=== PATIENT | female | born 1950 | race Caucasian/White ===

== ENCOUNTER 2018-05-22 10:57 | Inpatient (IN) | payer MEDICARE, OTHER ==
[2018-05-22] MEDS ORDERED: Albuterol Sulfate 2.5 mg/3 ml Neb ONE (11:19)
[2018-05-22 11:54] LABS: Troponin I 0.397 ng/mL (< 0.028)
[2018-05-22] MEDS ORDERED: Nitroglycerin 2% Ointment 1 INCH/1 GM Packet ONE (13:40)
[2018-05-22] MEDS ORDERED: Acetaminophen 325 MG TAB PO PRN (14:17)
[2018-05-22] MEDS ORDERED: Ondansetron ODT 4 MG TAB PO PRN (14:17)
--- NOTE | 2018-05-22 15:06 | HP ---
PRIMARY CARE PROVIDER: Chris Gilbert MD The patient has a history of asthma, worse over the last 10 years, poorly controlled. She had a two week upper respiratory infection and started coughing. She developed respiratory distress at 3 a.m. Her Combivent inhaler was of no relief. She progressively became worse. Her called 911. She went to [place]. She was treated aggressively and subsequently transferred to [place] where she was referred to the [facility]. She has had no fever, chills, or chest pain. She is in much less distress at this time. PAST MEDICAL HISTORY: Pertinent for asthma, gastroesophageal reflux disease and labile hypertension. CURRENT MEDICATIONS: Combivent, Advair as needed. ALLERGIES: NO MEDICAL ALLERGIES. PAST SURGICAL HISTORY: Right total hip replacement 5-10 years ago. FAMILY HISTORY: Negative for coronary artery disease, diabetes, hypertension, asthma. SOCIAL HISTORY: . at bedside. Full code status. He is a surrogate decision maker. No tobacco. No alcohol. No illicit drugs. REVIEW OF SYSTEMS: GENERAL: With present illness, she was lightheaded with no fainting. This is resolved. EYES: No double vision, blurred vision, flashing lights. EAR, NOSE, AND THROAT: No ear pain or drainage. No nasal bleeding. No trouble swallowing. CARDIAC: No pressure chest pain. No history of orthopnea or paroxysmal nocturnal dyspnea. RESPIRATIONS: See present illness. GASTROINTESTINAL: Slight nausea this morning. No vomiting. No abdominal pain. No diarrhea or constipation. GENITOURINARY: No hematuria or dysuria. MUSCULOSKELETAL: No pain or swelling in her legs. She did have an infiltrated IV earlier in the left antecubital fossa and she has significant subcutaneous fluid above her elbow and below her shoulder. NEUROLOGICAL: No strokes, seizures, or focal weakness. PSYCHIATRIC: No anxiety or depression. SKIN: She has a history of one skin cancer removed and multiple precancerous lesions treated by the [facility]. HEME/LYMPH: No tender or swollen lymph nodes in the axilla, inguinal, or cervical area. PHYSICAL EXAMINATION: GENERAL: She is alert, oriented, cooperative, pleasant lady. VITAL SIGNS: Currently vital signs, blood pressure 167/97, pulse 114, respirations 22, temperature 97.5, O2 saturation is 98 on 2 L of O2. HEAD, EYES, EARS, NOSE, AND THROAT: Revealed pupils are equal, round, and reactive to light. Extraocular movements are intact. Sclerae are white. Tympanic membranes clear. Nose clear. Throat is clear. NECK: Supple without jugular venous distention, adenopathy, or thyromegaly. CHEST: Clear to percussion. She does have some wheezes and some coarse breath sounds and rhonchi diffusely. After reviewing the records, they are much improved from previous. HEART: Has a hyperdynamic tachycardiac with a split S1, no murmurs noted. ABDOMEN: Soft. Bowel sounds are normal. There is no hepatosplenomegaly. No mass. No rebound. No bruits. EXTREMITIES: Reveal no cyanosis, clubbing, or edema. PULSES: Carotid, radial, femoral, and dorsalis pedis pulses intact and symmetric. SKIN: Warm and dry with some actinic changes. LYMPHATIC SURVEY: Reveals no tender or swollen lymph nodes in the axilla, inguinal, or cervical area. NEUROLOGICAL: Cranial nerves 2 through 12 intact. Deep tendon reflexes symmetric. Moves all extremities. Sensation intact. DIAGNOSTIC DATA: Chest x-ray: Some hyperinflation, vertical heart, no infiltrates, reviewed by me. EKG: Sinus tachycardia, some nonspecific ST abnormality. No acute changes Chemistries: Sodium 143, potassium 4.1, CO2 of 23, BUN 11, creatinine 0.7. Liver function tests normal. Blood sugar 114. Urinalysis is clear. BNP 151. Troponin 0.15 and 0.4. White count 7.0, hemoglobin 14.5, platelet count 252,000. ADMITTING DIAGNOSIS: Acute respiratory failure with hypoxemia, status asthmaticus, elevated troponin's. PLAN: Continue steroids. Continue DuoNeb 3 mL q.6 hours. Add Dulera two puffs b.i.d., continue O2 supplementation as needed. Because of the elevated enzymes, a nuclear medicine stress test will probably be done tomorrow. However, she will need to have clear lung aguayo and a resolved tachycardia by that time for me to do that. This has all been discussed with her and her . Job ID: [id number]
[2018-05-22 15:15] LABS: CKMB 8.8 ng/mL (0-6.6)
[2018-05-22] MEDS: Azithromycin 500 MG in Sodium Chloride 0.9% 250 ML 250 ML IVPB SCH (22:28)
[2018-05-22] MEDS: Guaifenesin DM 100-10/5 ML UDCUP PO PRN (23:13)
[2018-05-22] MEDS: Mometasone/Formoterol 120 PUFF INHALER INH SCH (23:57)
[2018-05-23 05:15] LABS: #Lymphocytes 0.7 thou/uL (1.20-3.40); #Monocytes 0.9 thou/uL (0.11-0.59); %Basophils 0.3 % (0.0-1.0); %Eosinophils 0.1 % (0.0-10.0); %Monocytes 7.9 % (0.0-10.0); %Neutrophils 85.6 % (42.0-75.0); Hemoglobin 13.8 g/dL (12.0-16.0); Mean Corpuscular Hemoglobin 32.9 pg (27.0-31.0); Mean Corpuscular Volume 99.6 fL (78.0-98.0); Mean Platelet Volume 7.1 fL (7.4-10.4); Platelet Count 264 thou/uL (130-400); RBC Distribution Width 12.1 % (11.5-14.5); Red Blood Cell (RBC) Count 4.21 mill/uL (4.20-5.40); White Blood Cell (WBC) Count 11.7 thou/uL (4.8-10.8)
[2018-05-23 05:33] LABS: Anion Gap 12 mmol/L (10-20); BUN (Urea Nitrogen) 10 mg/dL (9.8-20.1); Calc. Creatinine Clearance 74 mL/min (70-130); Calcium 10.1 mg/dL (7.8-10.44); Carbon Dioxide 25 mmol/L (23-31); Chloride 108 mmol/L (98-107); Estimated GFR-MDRD 82; Glucose 114 mg/dL (80-115); Potassium 4.5 mmol/L (3.5-5.1); Sodium 140 mmol/L (136-145)
[2018-05-23] MEDS: Mometasone/Formoterol 120 PUFF INHALER INH SCH ×2 (06:35→18:33)
[2018-05-23] MEDS: Enoxaparin Sodium 40 MG/0.4 ML SYRINGE SC SCH (09:25)
[2018-05-23] MEDS: predniSONE 20 MG TAB PO SCH (09:25)
--- NOTE | 2018-05-23 09:39 | PDOC.PN ---
- Subjective Encounter Start Date: 05/23/18 Encounter Start Time: 09:36 Subjective: min sob,mild wheezing - Objective Resuscitation Status - Order Detail: 05/22/18 14:14 Resuscitation Status Routine Resuscitation Status: FULL: Full Resuscitation MAR Reviewed: Yes Vital Signs & Weight: Vital Signs (12 hours) Temp Pulse Resp BP Pulse Ox 05/23/18 04:15 98.5 F 112 H 20 156/85 H 95 05/22/18 23:53 72 16 92 L 05/22/18 23:15 107 H 18 159/87 H Weight Weight 131 lb 8 oz I&O: 05/22/18 05/23/18 05/24/18 06:59 06:59 06:59 Intake Total 240 Output Total 200 Balance 40 Result Diagrams: 05/23/18 04:41 05/23/18 04:41 Phys Exam - Physical Examination Neck: no JVD scattered wheezes,OW good BS Cardiovascular: RRR, no significant murmur Gastrointestinal: soft, positive bowel sounds Musculoskeletal: no edema Dx/Plan (1) Status asthmaticus Code(s): J45.902 - UNSPECIFIED ASTHMA WITH STATUS ASTHMATICUS Status: Acute Qualifiers: Asthma severity: severe Asthma persistence: unspecified Qualified Code(s) : J45.902 - Unspecified asthma with status asthmaticus (2) Acute respiratory failure with hypoxemia Code(s): J96.01 - ACUTE RESPIRATORY FAILURE WITH HYPOXIA Status: Acute (3) Demand ischemia Code(s): I24.8 - OTHER FORMS OF ACUTE ISCHEMIC HEART DISEASE Status: Acute (4) HTN (hypertension) Code(s): I10 - ESSENTIAL (PRIMARY) HYPERTENSION Status: Acute Qualifiers: Hypertension type: essential hypertension Qualified Code(s): I10 - Essential (primary) hypertension - Plan cont nebs,steroids, dulera, O2 -: consult cardiology * .
[2018-05-23] MEDS: Guaifenesin DM 100-10/5 ML UDCUP PO PRN ×2 (10:14→20:08)
[2018-05-23] MEDS: Azithromycin 500 MG in Sodium Chloride 0.9% 250 ML 250 ML IVPB SCH (15:05)
[2018-05-23] MEDS ORDERED: Amlodipine 5 MG TAB PO SCH (17:45)
--- NOTE | 2018-05-23 18:06 | CON ---
DATE OF CONSULTATION: LOCATION: [place], [place]. CONSULTING PROVIDER: Dr. Jose. HISTORY OF PRESENT ILLNESS: The patient is a 67-year-old female with past medical history of asthma, who was previously well controlled on her current medications which include albuterol inhaler and Combivent. She presented to [facility] with increasing shortness of breath without improvement with use of both albuterol and Combivent. She was treated aggressively for severe asthma exacerbation in the [facility] and subsequently transferred to [place]. We are consulted regarding the patient's elevated cardiac enzymes, which she had the CK-MB of 3.9, which increased to 8.8 and troponins, which were elevated initially at [facility] at 0.151 and increased to 0.663. The patient denied any chest pain, pleurisy, nausea, vomiting, diaphoresis, palpitations, syncopal or presyncopal episodes. The patient does report shortness of breath and wheezing, which is similar in character to previous asthma exacerbations; however, she reports this one was much worse. REVIEW OF SYSTEMS: GENERAL: The patient denies fever or chills. CARDIOVASCULAR: Denies chest pain. Denies palpitations. Denies diaphoresis. RESPIRATORY: The patient reports shortness of breath. The patient reports wheezing. The patient reports cough. PHYSICAL EXAMINATION: GENERAL: The patient is resting comfortably in bed, in no acute distress. HEAD: Normocephalic and atraumatic. CARDIOVASCULAR: Heart is regular rate and rhythm. No murmurs, rubs, or gallops. RESPIRATORY: The patient had diffusely diminished breath sounds bilaterally with inspiratory and expiratory wheezes present. ABDOMEN: Soft, nontender, and nondistended. Normoactive bowel sounds in all 4 quadrants. EXTREMITIES: No clubbing, cyanosis, or edema. Peripheral pulses are intact 2+ throughout. PHYSICAL EXAMINATION: VITAL SIGNS: Temperature 97.6, pulse 122, respiratory rate 16, oxygen saturation 92% on room air, and blood pressure 164/99. PERTINENT LAB VALUES: The patient had a CK-MB of 8.8, troponin of 0.663. Creatinine 0.71, BUN of 10. D-dimer less than 0.27. WBC 11.7, hemoglobin 13.8, and hematocrit 41.9. ASSESSMENT AND PLAN: 1. Elevated cardiac enzymes, this is likely due to demand ischemia with concern for underlying coronary artery disease elicited by the acute asthma exacerbation. We will check a D-dimer, which was within normal limits to rule out possibility of pulmonary embolism. Ultimately, plan is for cardiac catheterization after better control of the asthma exacerbation. The patient was counseled on risks and benefits and is agreeable to proceed with cardiac catheterization. We will advance diet to heart healthy, reassessed this afternoon and plan accordingly pending the patient's clinical status. 2. Asthma exacerbation. Continue current medical management. We will plan for cardiac catheterization after resolution of symptoms. The patient seen and examined by Dr. Tobias Reid, agrees with the above assessment and plan unless otherwise indicated in his dictation. Job ID: [id number]
[2018-05-24] MEDS: Mometasone/Formoterol 120 PUFF INHALER INH SCH ×2 (06:55→18:58)
--- NOTE | 2018-05-24 07:08 | CON ---
DATE OF CONSULTATION: REASON FOR CONSULTATION: Elevated troponin. Dr. Anne-Marie Jose from [facility]. Please refer to Hernando Perez's full consultation for details. HISTORY OF PRESENT ILLNESS: Ms. Mix is a pleasant 67-year-old woman, who recently presented with status asthmaticus. She does have a previous history of asthma. She states she had a coughing spell that precipitated severe asthma. She continues to be short of breath in addition to tachycardia from underlying medications. She denied chest pain or pressure. Her recent labs did suggest troponin of 0.6 with a CK-MB of 88. She has no previous history of underlying coronary artery disease. PHYSICAL EXAMINATION: GENERAL: Patient is a pleasant 67-year-old woman, who is in no acute distress. The patient appears their stated age. VITAL SIGNS: Blood pressure 164/99, pulse 122, and temperature 97.6. NEUROLOGIC: The patient is alert and oriented x3 with no focal neurologic deficits. HEENT: Sclerae without icterus. Mouth has moist mucous membranes with normal pallor. NECK: No JVD. Carotid upstroke brisk. No bruits bilaterally. LUNGS: Wheezing noted bilaterally. BACK: No scoliosis or kyphosis. CARDIAC: Regular rate and rhythm with normal S1 and S2. No S3 or S4 noted. No significant rubs, murmurs, thrills, or gallops noted throughout the precordium. PMI is not displaced. There is no parasternal heave. ABDOMEN: Soft, nontender, nondistended. No peritoneal signs present. No hepatosplenomegaly. No abnormal striae. EXTREMITIES: 2+ femoral and 2+ dorsalis pedis pulses. No cyanosis, clubbing, or edema. SKIN: No gross abnormalities. PERTINENT LABORATORY DATA: As above. Hemoglobin 13.8. IMPRESSION: 1. Elevated troponin. 2. Status asthmaticus. RECOMMENDATIONS: Ms. Mix's troponin is elevated. She has no significant risk factors for underlying coronary artery disease, but cannot refuse the underlying troponin. I recommended proceeding with coronary angiography and possible PCI. I discussed the procedure in full detail with Ms. Mix. Risks included, not limited to the following: , stroke, [place], need for emergency surgery, loss of limb, bleeding, and infection, as well as a reaction to the dye causing kidney failure and needing long-term dialysis. I also discussed the risks of PCI to include all of the above including coronary dissection and perforation in addition to acute stent thrombosis and restenosis. All questions were answered. I also discussed drug-coated and [id number] stent placement. There were no contraindications. At this point, given her heart rate and continued wheezing and the fact that she is not able to lie flat, we will defer proceeding with angiography. We will reassess in a.m. Continue Lovenox as prescribed. Job ID: [id number]
[2018-05-24] MEDS: predniSONE 20 MG TAB PO SCH (08:40)
[2018-05-24] MEDS ORDERED: Amlodipine 5 MG TAB PO SCH (09:00)
--- NOTE | 2018-05-24 09:00 | PDOC.PN ---
- Subjective Encounter Start Date: 05/24/18 Encounter Start Time: 08:58 Subjective: sob with exertion, mild cough - Objective Resuscitation Status - Order Detail: 05/22/18 14:14 Resuscitation Status Routine Resuscitation Status: FULL: Full Resuscitation MAR Reviewed: Yes Vital Signs & Weight: Vital Signs (12 hours) Temp Pulse Resp BP Pulse Ox 05/24/18 08:37 97.8 F 106 H 15 183/106 H 95 05/24/18 06:54 100 16 90 L 05/24/18 04:00 97.5 F L 105 H 20 161/103 H 95 05/24/18 01:31 101 H 16 92 L 05/23/18 22:16 106 H 20 91 L Weight Weight 129 lb 12.8 oz I&O: 05/23/18 05/24/18 05/25/18 06:59 06:59 06:59 Intake Total 240 680 Output Total 200 400 Balance 40 280 Result Diagrams: 05/23/18 04:41 05/23/18 04:41 Phys Exam - Physical Examination Constitutional: NAD Neck: no JVD corse BS, mild post lung wheezes Cardiovascular: RRR, no significant murmur Gastrointestinal: soft, positive bowel sounds Musculoskeletal: no edema Dx/Plan (1) Status asthmaticus Code(s): J45.902 - UNSPECIFIED ASTHMA WITH STATUS ASTHMATICUS Status: Acute Qualifiers: Asthma severity: severe Asthma persistence: unspecified Qualified Code(s) : J45.902 - Unspecified asthma with status asthmaticus (2) Acute respiratory failure with hypoxemia Code(s): J96.01 - ACUTE RESPIRATORY FAILURE WITH HYPOXIA Status: Acute (3) Demand ischemia Code(s): I24.8 - OTHER FORMS OF ACUTE ISCHEMIC HEART DISEASE Status: Acute (4) HTN (hypertension) Code(s): I10 - ESSENTIAL (PRIMARY) HYPERTENSION Status: Acute Qualifiers: Hypertension type: essential hypertension Qualified Code(s): I10 - Essential (primary) hypertension - Plan start iv enalapril 1.25 q6h for BP -: cont steroids, nebs, etc -: timing or cardiac cath depends on being able to lie flat * .
[2018-05-24] MEDS: Enoxaparin Sodium 40 MG/0.4 ML SYRINGE SC SCH (10:20)
[2018-05-24] MEDS: Enalaprilat Dihydrate 1.25 MG/ML VIAL SLOW IVP SCH ×3 (11:16→20:00)
--- NOTE | 2018-05-24 14:53 | PDOC.CTH ---
Cardiology Progress Note - Subjective Feeling better today. Feels like she can lie flat. Still with elevated BP and pulse rate 100-140bpm. SR. Feels racing heart beat, but no CP. - Objective Vital Signs Temp Pulse Resp BP Pulse Ox 05/24/18 14:11 100 16 92 L 05/24/18 11:09 97.6 F 106 H 22 H 168/97 H 96 05/24/18 11:01 102 H 16 92 L 05/24/18 08:37 97.8 F 106 H 15 183/106 H 95 05/24/18 06:54 100 16 90 L 05/24/18 04:00 97.5 F L 105 H 20 161/103 H 95 Weight 129 lb 12.8 oz 05/23/18 05/24/18 05/25/18 06:59 06:59 06:59 Intake Total 240 680 Output Total 200 400 Balance 40 280 - Physical Examination General/Neuro: alert & oriented x3 Neck: no JVD present Lungs: other: (Right exp wheeze) Heart: other: (Regular, tachy) Abdomen: NT/ND Extremities: other: (no edema) - Telemetry Telemetry Rhythm: ST - Labs Result Diagrams: 05/23/18 04:41 05/23/18 04:41 Troponin/CKMB CK-MB (CK-2) 8.8 ng/mL (0-6.6) H* 05/22/18 14:10 Troponin I 0.663 ng/mL (< 0.028) H* 05/22/18 14:10 - Assessment/Plan 1. NSTEMI 2. Asthma exacerbation 3. HTN 4. Tachycardia IV cardizem x 1. Start po cardizem to help improve tachycardia. Plan for diagnostic LHC possibly tomorrow. Continue addressing BP. Vasotec added today. Trend trop with repeat lab in AM.
[2018-05-24] MEDS: Azithromycin 500 MG in Sodium Chloride 0.9% 250 ML 250 ML IVPB SCH (15:49)
[2018-05-24] MEDS: Guaifenesin DM 100-10/5 ML UDCUP PO PRN (20:00)
[2018-05-24] MEDS ORDERED: Lorazepam 0.5 MG TAB PO SCH (21:00)
[2018-05-25] MEDS: Zolpidem Tartrate 5 MG TAB PO PRN ×2 (01:09→20:15)
[2018-05-25] MEDS: Enalaprilat Dihydrate 1.25 MG/ML VIAL SLOW IVP SCH ×2 (02:57→09:57)
[2018-05-25] MEDS: Guaifenesin DM 100-10/5 ML UDCUP PO PRN ×3 (05:22→18:24)
[2018-05-25 05:36] LABS: Anion Gap 13 mmol/L (10-20); BUN (Urea Nitrogen) 16 mg/dL (9.8-20.1); Calc. Creatinine Clearance 68 mL/min (70-130); Calcium 10.1 mg/dL (7.8-10.44); Carbon Dioxide 22 mmol/L (23-31); Chloride 106 mmol/L (98-107); Estimated GFR-MDRD 77; Glucose 97 mg/dL (80-115); Sodium 137 mmol/L (136-145)
[2018-05-25 05:57] LABS: CKMB 3.6 ng/mL (0-6.6)
[2018-05-25] MEDS: Mometasone/Formoterol 120 PUFF INHALER INH SCH ×2 (07:10→18:59)
--- NOTE | 2018-05-25 09:29 | PDOC.PN ---
- Subjective Encounter Start Date: 05/25/18 Encounter Start Time: 09:28 Subjective: another asthma episode last nite - Objective Resuscitation Status - Order Detail: 05/22/18 14:14 Resuscitation Status Routine Resuscitation Status: FULL: Full Resuscitation MAR Reviewed: Yes Vital Signs & Weight: Vital Signs (12 hours) Temp Pulse Resp BP BP Pulse Ox 05/25/18 08:00 97.6 F 102 H 20 142/92 H 93 L 05/25/18 07:10 111 H 14 91 L 05/25/18 05:16 116 H 24 H 84 L 05/25/18 03:30 97.4 F L 105 H 20 129/75 92 L 05/25/18 02:57 102 H 16 137/81 137/81 93 L 05/25/18 02:24 101 H 20 92 L Weight Weight 125 lb 8 oz I&O: 05/24/18 05/25/18 05/26/18 06:59 06:59 06:59 Intake Total 680 1160 Output Total 400 Balance 280 1160 Result Diagrams: 05/23/18 04:41 05/25/18 04:59 Phys Exam - Physical Examination Neck: no JVD coarse BS Cardiovascular: RRR, no significant murmur Gastrointestinal: soft, positive bowel sounds Musculoskeletal: no edema Dx/Plan (1) Status asthmaticus Code(s): J45.902 - UNSPECIFIED ASTHMA WITH STATUS ASTHMATICUS Status: Acute Qualifiers: Asthma severity: severe Asthma persistence: unspecified Qualified Code(s) : J45.902 - Unspecified asthma with status asthmaticus (2) Acute respiratory failure with hypoxemia Code(s): J96.01 - ACUTE RESPIRATORY FAILURE WITH HYPOXIA Status: Acute (3) Demand ischemia Code(s): I24.8 - OTHER FORMS OF ACUTE ISCHEMIC HEART DISEASE Status: Acute (4) HTN (hypertension) Code(s): I10 - ESSENTIAL (PRIMARY) HYPERTENSION Status: Acute Qualifiers: Hypertension type: essential hypertension Qualified Code(s): I10 - Essential (primary) hypertension - Plan pulmonology consult -: echo pending * .
[2018-05-25] MEDS: Enoxaparin Sodium 40 MG/0.4 ML SYRINGE SC SCH (09:53)
[2018-05-25] MEDS: predniSONE 20 MG TAB PO SCH (09:54)
[2018-05-25] MEDS: Azithromycin 500 MG in Sodium Chloride 0.9% 250 ML 250 ML IVPB SCH (14:33)
--- NOTE | 2018-05-25 14:44 | CON ---
DATE OF CONSULTATION: SUBJECTIVE: Ms. Mix states she had a great day yesterday. This morning, she had another coughing spell. She had significant shortness of breath this morning. She had recurrent wheezing. Her states he has been able to hear her from the side of the bed. Heart rate has consistently been in the 110s to 120s. PHYSICAL EXAMINATION: GENERAL: Patient is a pleasant female who is in no acute distress. The patient appears their stated age. VITAL SIGNS: Blood pressure 145/88, pulse 112, respirations 20. NEUROLOGIC: The patient is alert and oriented x3 with no focal neurologic deficits. HEENT: Sclerae without icterus. Mouth has moist mucous membranes with normal pallor. NECK: No JVD. Carotid upstroke brisk. No bruits bilaterally. LUNGS: Wheezing and rhonchi bilaterally. BACK: No scoliosis or kyphosis. CARDIAC: Regular rate and rhythm with normal S1 and S2. No S3 or S4 noted. No significant rubs, murmurs, thrills, or gallops noted throughout the precordium. PMI is not displaced. There is no parasternal heave. ABDOMEN: Soft, nontender, nondistended. No peritoneal signs present. No hepatosplenomegaly. No abnormal striae. EXTREMITIES: 2+ femoral and 2+ dorsalis pedis pulses. No cyanosis, clubbing, or edema. SKIN: No gross abnormalities. PERTINENT LABORATORY DATA: Hemoglobin 13.8. Peak troponin 0.663 with CK-MB of 1.8. IMPRESSION: 1. Elevated troponin. 2. Status asthmaticus. 3. Recurrent wheezing. RECOMMENDATIONS: I have asked Dr. Escobar to consult on Ms Mix. She continues to have issues and symptoms despite medical therapy. At this point, I would not feel comfortable proceeding with coronary angiography given consistent tachycardia and difficulty with breathing. I will be out of the office tomorrow. I did state if needed, we could proceed with the catheterization on Tuesday. She wanted to discuss further options. I do not feel a stress test is appropriate given her current lung condition. It would be okay from my standpoint if she wanted to be treated medically with close outpatient followup if she improves over the weekend. Otherwise, I have no further recommendations. She has no current symptoms suggesting angina so would not benefit Imdur. She has been placed on low-dose Cardizem for rate control. Job ID: [id number]
[2018-05-25] MEDS ORDERED: Montelukast Sodium 10 mg Tablet PO SCH (21:00)
--- NOTE | 2018-05-26 01:45 | CON ---
DATE OF CONSULTATION: HISTORY OF PRESENT ILLNESS: Alina Mix is a 67-year-old female with asthma for many years now. It was an adult onset. She is followed by Dr. Gilbert. She presented with a progressive rapid shortness of breath after developing what she thought was a viral illness 2 weeks ago. She is improving slowly, but not as fast as she would like. Her says she could not talk when she came in. She does not have a nebulizer at home. She is not steroid dependent. She does not have peripheral eosinophilia by admitting lab. PAST MEDICAL HISTORY: Remarkable for hypertension and reflux disease. She has been on Advair and Combivent for many years. SOCIAL HISTORY: She is a nonsmoker, nondrinker, nondrug user. FAMILY HISTORY: She has no family history of asthma or lung disease in early age. PAST SURGICAL HISTORY: Remarkable for hip replacement. ALLERGIES: REPORTS NO DRUG ALLERGIES. REVIEW OF SYSTEMS: Ten-point otherwise negative. She actually wants to go home today. PHYSICAL EXAMINATION: VITAL SIGNS: She is afebrile. Heart rate is 110, respiratory rate 16, and oximetry is 92% to 93%. HEAD AND NECK: Unremarkable. She has no lymphadenopathy. LUNGS: Remarkable for distant wheezes. HEART: Regular rhythm. S1 and S2 are normal. ABDOMEN: Soft and nontender. EXTREMITIES: Without clubbing, cyanosis, or edema. IMPRESSION: Asthma exacerbation, slowly improving. This is not surprising after a viral illness. I doubt she has bacterial bronchitis, but I think it is reasonable to place her on azithromycin. This can be switched to p.o. azithromycin. She has no infiltrates on her chest radiograph. She has an elevated troponin that will be worked up by Cardiology, but I would think it could be done as an outpatient. An echocardiogram is pending. With regard to her ongoing bronchospasm, I suspect this will slowly improve. Her resting tachycardia is likely related to her bronchospasm. She wants to go home if she can today or tomorrow. I do not think that is unreasonable that she is not having a history suggestive of unstable angina and just has abnormal troponins. Her tachyarrhythmia (sinus tach) is most likely related to status asthmaticus. Actually, need to get her a peak flow meter and see what her bedside peak flows are. I suspect they are much worse than we would suspect clinically and I suspect she always has some low degree of asthma going on, just had a severe exacerbation. I have encouraged her to push fluids to hopefully facilitate mucus clearance. TIME SPENT: This was a 50-minute consult, 50% of the time spent on the unit coordinating care. Job ID: [id number]
[2018-05-26] MEDS: Mometasone/Formoterol 120 PUFF INHALER INH SCH (06:52)
[2018-05-26] MEDS ORDERED: Azithromycin 200 MG/5 ML Oral Suspension PO SCH (09:00)
[2018-05-26] MEDS: predniSONE 20 MG TAB PO SCH (09:02)
[2018-05-26] MEDS: Enoxaparin Sodium 40 MG/0.4 ML SYRINGE SC SCH (09:03)
--- NOTE | 2018-05-26 11:22 | PRG ---
DATE OF SERVICE: 05/26/2018 SUBJECTIVE: Ms. Mix did well overnight. She has no new complaints. She wants to go home. She feels like she is stable to go home. Her agrees with her. OBJECTIVE: VITAL SIGNS: She is afebrile. Heart rate is 93, respiratory rate is 18, oximetry is 96% on room air, blood pressure is 169/88. LUNGS: Clear. HEART: Regular rhythm. S1 and S2 normal. ABDOMEN: Soft and nontender. IMPRESSION: 1. Asthma exacerbation. 2. Probable coexistent bronchitis. She probably can stop her antibiotics going out the door. PLAN: We have added Singulair. I have recommended prednisone 40 mg for 5 days and 20 mg until she sees me in 2 weeks. I have written a prescription for nebulizer. I have written a prescription for ipratropium and albuterol premix to do four times a day and p.r.n. If she has any problems in the interim, I can work her in sooner. Job ID: [id number]
[2018-05-26 12:35] VITALS: BP 145/81; TEMP 98
--- NOTE | 2018-05-26 18:15 | DIS ---
DATE OF ADMISSION: 05/22/2018 DATE OF DISCHARGE: 05/26/2018 ADMITTING DIAGNOSES: Asthma and elevated troponins. DISCHARGE DIAGNOSES: Asthma, resolved. Elevated troponin, stable. HISTORY OF PRESENT ILLNESS: This is a 67-year-old female, who was admitted to the hospital with shortness of breath and some asthma exacerbation. The patient was admitted to Internal Medicine Team as well as seen by Cardiology and Pulmonary. The patient was determined to have likely an ACS episode. However, given the acute rise in troponins in the setting of declined troponins, it was decided that the patient will be treated with medical management. ST-elevation DE was ruled out. The patient was given all the medications that she needed at point in time of discharge, including optimal medical management for the patient's condition was advised to follow up with PCP and Cardiology as well as Pulmonary within 1 to 2 weeks for further outpatient training and care. The patient's condition upon the time of discharge was stable. She denied any nausea, vomiting, diarrhea, constipation, chest pain, fever, chills, or shortness of breath. The patient was to follow up with her private physicians as mentioned earlier. CONDITION: Stable. ACTIVITY: As tolerated with assistance as needed. DIET: Low-fat, low-calorie, and high-fiber diet. PROGNOSIS: Good. DISCHARGE MEDICATIONS: See MAR. Case and plan discussed with the patient at length, family at bedside. They understood and agree with this plan. Job ID: [id number]
--- NOTE | 2018-05-27 15:26 | EKG ---
Test Reason : Blood Pressure : / mmHG Vent. Rate : 108 BPM Atrial Rate : 108 BPM P-R Int : 144 ms QRS Dur : 094 ms QT Int : 380 ms P-R-T Axes : 066 043 041 degrees QTc Int : 509 ms Sinus tachycardia Possible Left atrial enlargement Nonspecific ST abnormality No STEMI Abnormal ECG Confirmed by MERI Coles, BALDEMAR ([id number]), website/blog editor JENNIFER NOONAN ([id number]) on 05/27/2018 3:26:18 PM Referred By: Confirmed By:BALDEMAR JEREZ M.D.
== END 2018-05-26 13:35 | disposition home or self-care (01) | DRG 189 ==
LOC: ERS 10:57 → 2NO 11:21
PROVIDERS: ADMIT Internal Medicine; ATTEND Internal Medicine
DX: J96.01 Acute respiratory failure with hypoxia (principal); J45.902 Unspecified asthma with status asthmaticus; I24.8 Other forms of acute ischemic heart disease; I10 Essential (primary) hypertension; R00.0 Tachycardia, unspecified; K21.9 Gastro-esophageal reflux disease without esophagitis
CPT/HCPCS: 36415; 80048; 82553; 84484; 85025; 85379; 93005; 94640; 94644; 96360; J0456; J1650; J7050; J7611; J7620

== ENCOUNTER 2018-06-14 09:17 | Outpatient (CLI) | payer MEDICARE, OTHER ==
--- NOTE | 2018-06-14 09:35 | RAD ---
TWO VIEWS CHEST: History: Dyspnea. Date: 06-14-18 Comparison: 05-22-18 FINDINGS: PA and lateral chest demonstrate mild cardiomegaly. The lungs are well aerated. No evidence of active intrathoracic disease seen. No evidence of effusions, pneumonia, or pneumothorax seen. IMPRESSION: Mild cardiomegaly. POS: [facility]
== END 2018-06-14 09:18 | disposition home or self-care (01) ==
LOC: RAD 09:17
PROVIDERS: ATTEND Internal Medicine Critical Care Medicine
DX: R06.00 Dyspnea, unspecified (principal); I51.7 Cardiomegaly
CPT/HCPCS: 71046

== ENCOUNTER 2021-04-23 11:14 | Outpatient (CLI) | payer MEDICARE, OTHER ==
[2021-04-23 12:27] LABS: #Basophils 0.1 10x3/uL (0.0-0.2); #Eosinphils 0.1 10x3/uL (0.0-0.5); #Monocytes 0.6 10x3/uL (0.0-1.1); %Basophils 0.9 % (0.0-2.0); %Eosinophils 2.4 % (0.0-6.0); %Lymphocytes 31.2 % (18.0-47.0); %Monocytes 10.3 % (0.0-10.0); Hemoglobin 13.3 g/dL (12.0-15.5); Mean Corpuscular HGB CONC 33.2 g/dL (32.0-36.0); Mean Corpuscular Hemoglobin 32.2 pg (27.0-33.0); Mean Corpuscular Volume 97.1 fl (81.6-98.3); Mean Platelet Volume 9.5 fl (7.4-10.4); Platelet Count 308 10x3/uL (150-450); RBC Distribution Width 11.9 % (11.5-14.5); Red Blood Cell (RBC) Count 4.13 10x6/uL (3.90-5.03); White Blood Cell (WBC) Count 5.5 10x3/uL (3.5-10.5)
[2021-04-23 12:43] LABS: Prothrombin Time 10.9 sec (9.5-12.1)
[2021-04-23 12:47] LABS: Anion Gap 16 mmol/L (10-20); BUN (Urea Nitrogen) 15 mg/dL (9.8-20.1); Calc. Creatinine Clearance 0 mL/min (70-130); Carbon Dioxide 25 mmol/L (23-31); Chloride 103 mmol/L (98-107); Glucose 93 mg/dL (80-115); Potassium 4.4 mmol/L (3.5-5.1); Sodium 140 mmol/L (136-145)
[2021-04-24 13:26] LABS: SARS-CoV-2 PCR by NAA Not Detected (NotDetected)
== END 2021-04-23 11:15 | disposition home or self-care (01) ==
LOC: LABBT 11:14
PROVIDERS: ATTEND Orthopaedic Surgery
DX: Z01.818 Encounter for other preprocedural examination (principal); M17.11 Unilateral primary osteoarthritis, right knee; Z20.822 Contact with and (suspected) exposure to COVID-19
CPT/HCPCS: 80048; 85025; 85610; 87081; U0003; U0005

== ENCOUNTER 2021-04-28 08:19 | Observation (INO) | payer MEDICARE, OTHER ==
[2021-04-20 14:06] VITALS: BMI 20.3
[2021-04-28] MEDS ORDERED: Tranexamic Acid 1,000 MG/10 ML VIAL ONE (09:17)
[2021-04-28] MEDS ORDERED: Vancomycin 1 GM/200 ML BAG ONE (09:17)
[2021-04-28] MEDS ORDERED: ceFAZolin 2 GM/Dextrose 50 ML IVPB ONE (09:17)
[2021-04-28] MEDS ORDERED: Fentanyl 100 MCG/2 ML VIAL ONE ×6 (09:18→14:14)
[2021-04-28] MEDS ORDERED: Midazolam HCl 2 mg/2 ml Vial ONE (09:18)
[2021-04-28] MEDS ORDERED: Fentanyl 100 MCG/2 ML VIAL IV PRN (10:45)
[2021-04-28] MEDS ORDERED: Promethazine HCl 25 MG/ML VIAL IM PRN ×3 (10:45→12:29)
[2021-04-28] MEDS ORDERED: Ropivacaine 0.2% 550 ML 550 ML NERVE BLCK SCH (10:45)
[2021-04-28] MEDS ORDERED: HYDROcodone/Acetaminophen 10/325 mg Tablet PO PRN ×2 (10:45)
[2021-04-28] MEDS ORDERED: Zolpidem Tartrate 5 MG TAB PO PRN ×2 (10:45→10:48)
[2021-04-28] MEDS ORDERED: Ondansetron PF 4 MG/2 ML Vial IVP PRN ×2 (10:45→10:48)
[2021-04-28] MEDS ORDERED: traMADol HCl 50 MG TAB PO PRN ×4 (10:45→10:48)
[2021-04-28] MEDS ORDERED: Fentanyl 100 MCG/2 ML VIAL SLOW IVP PRN (10:48)
[2021-04-28] MEDS ORDERED: diphenhydrAMINE 25 MG CAP PO PRN (10:48)
[2021-04-28] MEDS ORDERED: Acetaminophen 325 MG TAB PO PRN (10:48)
[2021-04-28] MEDS ORDERED: Bupivacaine HCl 0.5%/Epinephrine 1:200,000/PF 30 ml Vial ONE (11:05)
[2021-04-28] MEDS ORDERED: Ondansetron PF 4 MG/2 ML Vial ONE (11:05)
[2021-04-28] MEDS ORDERED: Dexamethasone 20 MG/5 ML VIAL ONE (11:05)
[2021-04-28] MEDS ORDERED: PROPOFOL 200 MG/20 ML VIAL ONE (11:05)
[2021-04-28] MEDS ORDERED: Bupivacaine PF 0.5% 30 ML VIAL ONE (11:29)
[2021-04-28] MEDS ORDERED: Ketorolac Tromethamine 30 MG/ML VIAL IVP SCH (12:00)
[2021-04-28] MEDS ORDERED: Promethazine HCl 25 MG/ML VIAL IVPB PRN (12:29)
[2021-04-28] MEDS ORDERED: HYDROmorphone 2 MG/ML VIAL SLOW IVP PRN (12:29)
[2021-04-28] MEDS ORDERED: Ondansetron HCl/PF 4 MG/2 ML Vial IVP PRN (12:29)
[2021-04-28] MEDS ORDERED: HYDROmorphone 2 MG/ML VIAL ONE (12:47)
[2021-04-28] MEDS: HYDROcodone/Acetaminophen 10/325 mg Tablet PO PRN ×2 (16:37→20:46)
[2021-04-28] MEDS: Ketorolac Tromethamine 30 MG/ML VIAL IM SCH ×2 (16:38→20:44)
[2021-04-28] MEDS: Sodium Chloride 0.9% 1,000 ML IV SCH ×2 (16:39→22:20)
[2021-04-28] MEDS ORDERED: Mometasone 200 MCG/Formoterol 5 MCG 120 PUFF INHALER INH PRN (18:30)
[2021-04-28] MEDS: ceFAZolin 2 GM/Dextrose 50 ML 2 GM in Premix Bag 1 BAG IVPB SCH (19:35)
[2021-04-28] MEDS: Ferrous Gluconate 324 MG TAB PO SCH (20:45)
[2021-04-28] MEDS: Aspirin 81 mg Enteric Coated Tablet PO SCH (20:45)
[2021-04-28] MEDS: Senokot S 8.6-50 MG TAB PO SCH (20:46)
[2021-04-29] MEDS: ceFAZolin 2 GM/Dextrose 50 ML 2 GM in Premix Bag 1 BAG IVPB SCH (00:57)
[2021-04-29] MEDS: Ketorolac Tromethamine 30 MG/ML VIAL IM SCH ×3 (05:18→21:48)
[2021-04-29 06:18] LABS: Hemoglobin 11.9 g/dL (12.0-16.0); Mean Corpuscular Hemoglobin 33.1 pg (27.0-31.0); Mean Platelet Volume 6.8 fL (7.4-10.4); Platelet Count 282 thou/uL (130-400); RBC Distribution Width 11.1 % (11.5-14.5); Red Blood Cell (RBC) Count 3.61 mill/uL (4.20-5.40); White Blood Cell (WBC) Count 9.4 thou/uL (4.8-10.8)
[2021-04-29] MEDS: Sodium Chloride 0.9% 1,000 ML IV SCH ×2 (07:47→18:10)
[2021-04-29] MEDS: Ferrous Gluconate 324 MG TAB PO SCH ×2 (09:15→21:46)
[2021-04-29] MEDS: Cholecalciferol 1,000 UNITS (25 MCG) TAB PO SCH (09:15)
[2021-04-29] MEDS: LACTINEX 1 TAB PO SCH (09:15)
[2021-04-29] MEDS: Lisinopril 10 MG TAB PO SCH (09:15)
[2021-04-29] MEDS: Ascorbic Acid 500 mg Chewable Tablet PO SCH (09:15)
[2021-04-29] MEDS: Senokot S 8.6-50 MG TAB PO SCH ×2 (09:15→21:46)
[2021-04-29] MEDS: Multivitamin W/ Minerals 1 TAB PO SCH (09:16)
[2021-04-29] MEDS: Montelukast Sodium 10 mg Tablet PO SCH (09:16)
[2021-04-29] MEDS: Aspirin 81 mg Enteric Coated Tablet PO SCH ×2 (09:16→21:46)
[2021-04-29] MEDS: HYDROcodone/Acetaminophen 10/325 mg Tablet PO PRN ×4 (09:16→22:04)
[2021-04-29] MEDS: Multivit, Therapeutic 1 TAB PO SCH (09:17)
[2021-04-29] MEDS ORDERED: Atorvastatin Calcium 40 MG TAB PO SCH (21:00)
[2021-04-30] MEDS: Sodium Chloride 0.9% 1,000 ML IV SCH (03:42)
[2021-04-30] MEDS: Ketorolac Tromethamine 30 MG/ML VIAL IM SCH (05:49)
[2021-04-30 07:38] VITALS: BP 157/81; TEMP 97.4
[2021-04-30] MEDS: Aspirin 81 mg Enteric Coated Tablet PO SCH (09:01)
[2021-04-30] MEDS: LACTINEX 1 TAB PO SCH (09:01)
[2021-04-30] MEDS: HYDROcodone/Acetaminophen 10/325 mg Tablet PO PRN (09:02)
[2021-04-30] MEDS: Cholecalciferol 1,000 UNITS (25 MCG) TAB PO SCH (09:05)
[2021-04-30] MEDS: Montelukast Sodium 10 mg Tablet PO SCH (09:05)
[2021-04-30] MEDS: Ascorbic Acid 500 mg Chewable Tablet PO SCH (09:06)
[2021-04-30] MEDS: Multivitamin W/ Minerals 1 TAB PO SCH (09:07)
[2021-04-30] MEDS: Lisinopril 10 MG TAB PO SCH (09:07)
[2021-04-30] MEDS: Ferrous Gluconate 324 MG TAB PO SCH (09:07)
[2021-04-30] MEDS: Multivit, Therapeutic 1 TAB PO SCH (10:30)
[2021-04-30] MEDS: Senokot S 8.6-50 MG TAB PO SCH (10:46)
== END 2021-04-30 11:28 | disposition home health service (06) ==
LOC: SDC 08:19 → SJJU 10:48 → SDC 04-29 02:09 → SJJU 04-29 02:10
PROVIDERS: ADMIT Orthopaedic Surgery; ATTEND Internal Medicine
PROC: 0SRC0J9 Replacement of Right Knee Joint with Synthetic Substitute, Cemented, Open Approach (ICD-10-PCS; principal; 2021-04-28)
PROC: 8E0YXBZ Computer Assisted Procedure of Lower Extremity (ICD-10-PCS; 2021-04-28)
PROC: 3E0T3BZ Introduction of Anesthetic Agent into Peripheral Nerves and Plexi, Percutaneous Approach (ICD-10-PCS; 2021-04-28)
DX: M17.11 Unilateral primary osteoarthritis, right knee (principal); M21.061 Valgus deformity, not elsewhere classified, right knee; J45.20 Mild intermittent asthma, uncomplicated; I10 Essential (primary) hypertension; Z79.899 Other long term (current) drug therapy; Z96.641 Presence of right artificial hip joint
CPT/HCPCS: 20985; 27447; 64448; 73560; 85027; 97110 ×2; 97116 ×3; 97139 ×2; 97530; A4306; C1713; C1776; 36415; 96374; 96376; G0378; J0690; J1100; J1170; J1885; J2250; J2405; J2704; J2795; J3010; J3370; J7050; S0020